=== PATIENT | male | born 1950 | race Caucasian/White ===

== ENCOUNTER 2018-03-02 13:38 | Emergency (ER) | payer MEDICARE, OTHER, SELFPAY ==
[2018-03-02 13:40] VITALS: BP 140/78; PULSE 64; RESP 16; TEMP 36.4; O2SAT 97; BMI 29.5
--- NOTE | 2018-03-02 13:49 | ED.VISSUMM ---
- ER Visit Summary Date of Service: 03/02/18 Chief Complaint: Right knee pain and swelling History of Present Illness: The patient is a 67 M since to the emergency department with right knee pain and swelling. Patient denies any injury. He states about a week ago, he was putting in an outdoor patio. He states he was doing a lot of kneeling. He states that the next day, he had a dull ache in the knee. Over the week, his pain is increased. He states the knee is felt very tight. He denies any fevers. He denies any chills or sweats. He denies any definitive trauma. He has no history of immunosuppression. He was seen at urgent care and sent over for further evaluation. He denies any history of septic joint. He states that when he tries to bend the knee to 90? is when he gets the worse symptoms. He does not feel he gets clicking or popping. Physical Examination: Vital signs reviewed General: Well-nourished, well-developed Head: Normocephalic, atraumatic Eyes: Pupils equal and reactive, extraocular muscles intact Neck, supple, no lymphadenopathy Heart: Regular rate and rhythm Respiratory: No distress, clear bilaterally Abdomen: Soft, nontender, nondistended, no peritoneal signs Back: Nontender Extremities: Small effusion of right knee. No pain with small arc range of motion. No erythema. Flexion limited secondary to pain and swelling. Normal pulses. Skin: Normal color no rash Neuro: Alert and oriented, no focal or lateralizing deficits Test Results: [] Emergency Department Course and Treatment: Patient does have a small effusion. There is no evidence of cellulitis. He does have pain when he flexes the knee. There was no erythema, but there was a small effusion. Obtain plain films of the knee. There was a small effusion, and there is some narrowing of the medial joint space. I did feel the patient was going to require arthrocentesis to rule out septic joint. This was done in a sterile fashion. There was no evidence of septic joint. I do feel that this is likely reactive from overuse. At this time, if the patient is safe for discharge with outpatient orthopedic evaluation. I am going to place him on a short burst of prednisone and analgesics. He will be given crutches for comfort along with an Antony wrap. He will continue ice and elevation. He will be discharged home. Treatment Plan: [] Disposition: Discharge Impression: Right knee effusion This note was generated with [employer] dictation software. It may contain incorrect words, spelling, and punctuation that were not noted in review of the chart prior to signing ED Disposition - Plan for ED Patient: Chief Complaint: Lower Extremity Injury Instructions: ED Effusion Knee Prescriptions: Hydrocodone Bitart/Apap 5-325 [[place] 5MG-325MG] 1 tab PO Q4H PRN PRN 2 Days #8 tab PRN Reason: Pain Prednisone 10 mg PO UD #33 tab Referrals: Catrachito Dias MD [STAFF PHYSICIAN] -
--- NOTE | 2018-03-02 13:54 | RAD_ITS ---
STUDY: X-RAY - RIGHT KNEE REASON FOR EXAM: Male, 67 years old. One-week history of anterior knee pain and swelling. No known injury. TECHNIQUE: 4 view(s) of the knee. COMPARISON: None. FINDINGS: Normal visualized distal femur. Normal visualized proximal tibia and fibula. Normal proximal tibiofibular articulation. There is mild degenerative arthrosis of the medial femorotibial compartment. Normal lateral femorotibial compartment. Normal patellofemoral articulation. Small joint effusion. Atherosclerotic calcification. RAD/Knee 4 or More Views IMPRESSION: Degenerative arthrosis. Small joint effusion. Electronically Signed: Ruddy Sue MD at 14:19 EDT Tel [phone], Service support ,
[2018-03-02 14:25] LABS: Pathologist Comment/Body Fluid May follow
[2018-03-02] MEDS: Morphine 4 MG/ML Syringe IM (14:27)
[2018-03-02 14:43] LABS: Body Fluid Mononuclear WBC # 0.089 10^3/uL; Body Fluid Mononuclear WBC % 45.6 %; Body Fluid Polynuclear WBC # 0.106 10^3/uL; Body Fluid Polynuclear WBC % 54.4 %; Body Fluid Total Cells Counted 0.196 10^3/ul; White Blood Count/Body Fluid 0.195 10^3/uL
[2018-03-02 14:57] LABS: Auto B Fluid Analyzer BKGD Ct COUNTS W/IN LIMITS (W/IN LIMITS)
[2018-03-02 14:58] LABS: Appearance/Body Fluid CLOUDY; Color/Body Fluid RED; Source- Body Fluid OTHER
[2018-03-02 15:00] LABS: Source- Body Fluid OTHER
[2018-03-02 15:35] LABS: Body Fluid QC Type(s) BF1Q,BF2Q; Lymphocytes 36 %; Monocytes 24 %; Neutrophil (Segs) 40 %
--- NOTE | 2018-03-02 15:47 | ED.RN ---
pt ambulates out of dept with son in law. reports is meeting him in the parking lot.
[2018-03-03 11:41] LABS: GLUCOSE, SYNOVIAL FLUID 95 mg/dL (.)
[2018-03-03 12:07] LABS: Pathologist Review Reviewed
== END 2018-03-02 15:48 | disposition home or self-care (01) ==
PROVIDERS: Emergency Provider Emergency Medicine; Family Provider Family Medicine; PCP Family Medicine
DX: M25.461 Effusion, right knee (principal); K21.9 Gastro-esophageal reflux disease without esophagitis; I10 Essential (primary) hypertension
CPT/HCPCS: 20610; 73564; 82945; 87070; 87075; 87205; 89050; 89060; 99283

== ENCOUNTER → 2023-04-04 | Outpatient (CLI) | payer MEDICARE, OTHER, SELFPAY ==
--- NOTE | 2023-04-04 08:05 | CYSPIN_PTH ---
PATIENT: LUBNA MOLINA LOC: [facility] U#:[id number] AGE/SX: 72/M ROOM: RE04/04/[address]: Dr. Uday Gregory MD : 1950 BED: DIS: 04/04/2023 SPEC #: [id number] RECD: 04/05/23 09:34 STATUS: LUISA DE GUZMAN #: [id number] ROSALINDA: 04/04/23 08:[address]: Uday Gregory DEPT: CYTOLOGY RECD BY: Olga Jimenez ENTERED: 04/05/23 09:35 SP TYPE: CYSPIN FL OTHR DR: Dr. Pito Crespo MD Tissues: Urine Procedures: Pap Stain (control) Special Stain Group II Cytospin Fluid HEADER OPERATION: Not noted PRE-OP DIAGNOSIS: History of malignant neoplasm of bladder TISSUE SUBMITTED: Urine for cytology DIAGNOSIS CYTOLOGY Urine for cytology (cytospin): Rare atypical urothelial cells, favor reactive (Annamarie System Category III). See comment. AM:tristian 04/05/2023 COMMENT The Annamarie System for urine cytology diagnostic categorization was used in the evaluation of this case. CYTOLOGY STUDY Slides are reviewed. CYTOLOGY GROSS Received is 15 ml of gold cloudy fluid labeled with the patient's name and and designated per the requisition as urine. Submitted for cytology preparation. / tristian 04/05/2023 TC:? CPT: 07417
[2023-04-04 16:54] LABS: Cytology, Body Fluid / CSF SEE PATHOLOGY REPORT
== END | disposition home or self-care (01) ==
PROVIDERS: PCP Family Medicine; Referring Provider Urology; Visit Provider Urology
DX: Z85.51 Personal history of malignant neoplasm of bladder (principal)
CPT/HCPCS: 88108; 88313

== ENCOUNTER → 2025-04-11 | Outpatient (CLI) | payer MEDICARE, OTHER, SELFPAY ==
[2025-04-11 13:21] LABS: PSA,Total- Diagnostic 3.62 ng/mL (0.00-4.00)
== END | disposition home or self-care (01) ==
PROVIDERS: PCP Family Medicine; Referring Provider Urology; Visit Provider Urology
DX: R97.20 Elevated prostate specific antigen [PSA] (principal)
CPT/HCPCS: 36415; 84153